=== PATIENT | male | born 1965 ===

== ENCOUNTER 2022-03-03 14:17 | Emergency (ER) | payer SELFPAY ==
[2022-03-03] MEDS ORDERED: Albuterol 0.083% 2.5 MG/3 ML Neb Soln NEB ONE (14:19)
[2022-03-03] MEDS ORDERED: Albuterol/Ipratropium 3.0-0.5 MG/3 ML Neb Soln NEB ONE (14:19)
[2022-03-03] MEDS ORDERED: Magnesium Sulfate/Water 2 GM in Premix Bag 1 BAG IV ONE (14:19)
[2022-03-03] MEDS ORDERED: methylPREDNISolone Sodium Succinate 125 MG/2 ML SDV IVPUSH ONE (14:20)
[2022-03-03] MEDS ORDERED: Sodium Chloride 0.9% 10 ML Syringe FLUSH PRN (14:20)
[2022-03-03 14:58] LABS: ANION GAP 14.6 mEq/L (7-13); CHLORIDE,CL 96 mmol/L (98-107); ESTIMATED GFR 75 mL/min (>=60); SODIUM,NA 134 mmol/L (136-145)
== END 2022-03-03 17:20 | disposition home or self-care (01) ==
LOC: DL.ED 14:17
DX: J45.41 Moderate persistent asthma with (acute) exacerbation (principal); Z88.0 Allergy status to penicillin; Z79.899 Other long term (current) drug therapy; Z79.01 Long term (current) use of anticoagulants; Z20.822 Contact with and (suspected) exposure to COVID-19
CPT/HCPCS: 36415; 71045; 80053; 83605; 83735; 83880; 85025; 86140; 87040; 87635; 93005; 94640; 94660; 96374; 96375; 99284; J2930; J3475; J3490; 93010; J7613-GY; J7620-GY; U0002